=== PATIENT | male | born 1980 | race African-American/Black ===

== ENCOUNTER 2016-12-05 00:44 | Emergency (ER) | payer SELFPAY ==
[2016-12-05] MEDS ORDERED: Azithromycin 250 MG TAB ONE (01:12)
[2016-12-05] MEDS ORDERED: Albuterol Sulfate 1.25 MG/3 ML NEB ONE (01:12)
== END 2016-12-05 01:23 | disposition home or self-care (01) ==
LOC: MADERS 00:44
DX: J20.9 Acute bronchitis, unspecified (principal)